=== PATIENT | male | born 1970 | race Caucasian/White ===

== ENCOUNTER 2017-08-29 07:27 | Emergency (ER) | payer BC ==
[~2017-08-29] VITALS: Ht 182.9 cm; Wt 78.0 kg
[~2017-08-29 07:27] MED LIST: AUGM875 PO; LORT5TAB PO; OMEP20TA OR; VARE1PAK3 PO; Z.0.NO CURRENT MEDS
[2017-08-29 07:28] VITALS: BP 135/68; PULSE 76; RESP 16; TEMP 97.3; O2SAT 98
[2017-08-29] MEDS ORDERED: TRAM50TA PO (08:32)
--- NOTE | 2017-08-29 08:40 | PD ---
HPI Chief Complaint: Back/ Neck Pain or Injury Time Seen by Provider: 08:20 Travel History International Travel<30 days: No Contact w/Intl Traveler<30days: No Traveled to known affect area: No History of Present Illness HPI This patient complains of back pain. No specific injury. Duration one day. No sciatic radiation. Location is right low back. No fever or urinary complaints. He does have history of back troubles. PFSH Past Medical History Medical History: Denies Significant Hx Tetanus Vaccination: > 5 Years Influenza Vaccination: No Past Surgical History Surgical History: No Previous Surgery Social History Alcohol Use: Yes (occas. mix drinks, wine or beer) Tobacco Use: Yes (1 ppd) Substance Use: No Allergies-Medications (Allergen,Severity, Reaction): Coded Allergies: No Known Allergies (Verified Adverse Reaction, Unknown, 08/29/17) Reported Meds & Prescriptions Reported Meds & Active Scripts Active Tramadol (Tramadol HCl) 50 Mg Tab 50 Mg PO Q6H PRN Review of Systems General / Constitutional: No: Fever HENT: No: Headaches Cardiovascular: No: Chest Pain or Discomfort Physical Exam Narrative GASTROINTESTINAL: Abdomen soft, non-tender, nondistended. Positive bowel sounds. No hepato-splenomegaly, or palpable masses. No guarding. NEUROLOGICAL: Awake and alert. Pupils are equal round and reactive. Motor and sensory grossly within normal limits. Five out of 5 muscle strength in all muscle groups. Normal speech. Back: No midline tenderness. No bruising or swelling or limitation in range of motion Data Data Last Documented VS Vital Signs Date Time Temp Pulse Resp B/P (MAP) Pulse Ox O2 Delivery O2 Flow Rate FiO2 08/29/17 07:28 97.3 76 16 135/68 (90) 98 MDM Medical Decision Making Medical Screen Exam Complete: Yes Emergency Medical Condition: Yes Medical Record Reviewed: Yes Differential Diagnosis Sciatica, lumbar strain, disc herniation Narrative Course I have reviewed the patient's electronic medical record. He's been here several times for back trouble since 2004 No indication for emergent imaging. Neurologically intact No objective findings on exam Stable for outpatient follow-up I wrote him a note to get off work today. I wrote him some tramadol for pain relief Diagnosis Primary Impression: Low back pain Additional Instructions: The patient was advised to follow up with their physician and return if they worsen. The patient was warned about potential sedation for the medications they will receive on prescription. Med/Other Pt SpecificInfo: Prescription(s) given Scripts Tramadol (Tramadol) 50 Mg Tab 50 MG PO Q6H Y for PAIN, #20 TAB 0 Refills Prov: Tomy Kam MD 08/29/17 Disposition: 01 DISCHARGE HOME Condition: Stable Tomy Kam MD Aug 29, 2017 08:39
== END 2017-08-29 08:46 | disposition home or self-care (01) ==
LOC: PHED 07:27
DX: M54.5 Low back pain (principal); F17.200 Nicotine dependence, unspecified, uncomplicated
CPT/HCPCS: 99283